=== PATIENT | female | born 1965 | race Caucasian/White ===

== ENCOUNTER 2017-04-22 09:44 | Outpatient (CLI) | payer MEDICARE, MEDICAID ==
[~2017-04-22 09:44] MED LIST: CYCL-394; DEXL60CA3 PO; HUM7525 SQ; LANTUS SUBCUT; LEVO112T5 PO; LINA5TAB4 PO; METO10TA3 PO; MIDO2.5T14 PO; ONDA8TAB9 PO; OXYC10TA47 PO; POTA20TA19 PO; ROSU40TA PO; TOPI100T18 PO
== END 2017-04-22 23:59 | disposition home or self-care (01) ==
LOC: RAD 09:44
PROVIDERS: ATTEND Surgery
DX: R93.3 Abnormal findings on diagnostic imaging of other parts of digestive tract (principal)
CPT/HCPCS: 74270

== ENCOUNTER 2017-08-06 13:10 | Day surgery (SDC) | payer MEDICARE, MEDICAID ==
[~2017-08-06] VITALS: Ht 152.4 cm; Wt 55.0 kg
== END 2017-08-06 15:00 | disposition home or self-care (01) ==
LOC: SSTAY O 13:10
PROVIDERS: ATTEND Family Medicine
DX: L08.9 Local infection of the skin and subcutaneous tissue, unspecified (principal); Z86.14 Personal history of Methicillin resistant Staphylococcus aureus infection; F17.210 Nicotine dependence, cigarettes, uncomplicated
CPT/HCPCS: 36569; 76937

== ENCOUNTER 2018-08-27 15:04 | Emergency (ER) | payer MEDICARE, MEDICAID ==
[~2018-08-27] VITALS: Ht 152.4 cm; Wt 48.6 kg
[~2018-08-27 15:04] MED LIST changes: +TOP100T PO; -TOPI100T18 PO
[2018-08-27] MEDS ORDERED: normal saline 1000ML IV soln IVB ONE (16:40)
[2018-08-27] MEDS ORDERED: metoclopramide 5 mg/ml inj IV ONE (16:40)
[2018-08-27 17:10] LABS: BASOPHILS # (AUTO) 0.1 X10'3 (0-0.2); BASOPHILS % (AUTO) 0.7 % (0-1); EOSINOPHILS # (AUTO) 0.1 X10'3 (0-0.9); EOSINOPHILS % (AUTO) 0.9 % (0-6); HEMOGLOBIN 11.9 g/dl (12.0-16.0); LYMPHOCYTES # (AUTO) 2.6 X10'3 (1.1-4.8); LYMPHOCYTES % (AUTO) 24.1 % (21-51); MEAN CORPUSCULAR HEMOGLOBIN 28.9 PG (27.0-31.0); MEAN CORPUSCULAR HGB CONC 33.2 g/dL (33.0-36.5); MEAN CORPUSCULAR VOLUME 87.1 FL (78-98); MEAN PLATELET VOLUME 8.4 FL (7.4-10.4); MONOCYTES # (AUTO) 0.8 X10'3 (0-0.9); MONOCYTES % (AUTO) 7.7 % (2-12); NEUTROPHILS % (AUTO) 66.6 % (42-75); PLATELET COUNT 282 X10'3 (140-440); RED BLOOD COUNT 4.13 X10'6 (4.20-5.60); RED CELL DISTRIBUTION WIDTH 16.4 % (11.5-14.5); WHITE BLOOD COUNT 10.6 X10'3 (4.5-11.0)
[2018-08-27 17:21] LABS: ABG OXYGEN SATURATION 97.2 % (95-98); ABG PCO2 (T) 23.4 mmHg (32.0-45.0); ABG PH (T) 7.549 (7.350-7.450); ABG PO2 (T) 88.9 mmHg (83-108); ALLEN'S TEST Positive; FCOHb 1.2 % (0.5-1.5); FMetHb 0.3 % (0.3-1.12); FO2Hb 95.7 % (94-100); TOTAL HEMOGLOBIN 11.7 G/dl (12.0-16.0)
[2018-08-27 17:35] LABS: ALANINE AMINOTRANSFERASE 11 U/L (12-78); ALBUMIN 2.6 G/DL (3.4-5.0); ALBUMIN/GLOBULIN RATIO 0.8 (1.1-1.5); ALKALINE PHOSPHATASE 101 IU/L (46-116); ANION GAP 15 (8-16); ASPARTATE AMINO TRANSFERASE 7 U/L (10-37); BILIRUBIN,TOTAL 0.3 MG/DL (0.1-1.0); BLOOD UREA NITROGEN 23 MG/DL (7-18); BUN/CREATININE RATIO 10.4 (6.6-38.0); CALCIUM 7.9 MG/DL (8.5-10.1); CHLORIDE 101 MMOL/L (99-107); CREATININE 2.21 MG/DL (0.40-0.90); ETHANOL < 0.010 GM/DL (0.0-0.010); GLUCOSE 213 MG/DL (70-104); SODIUM 138 MMOL/L (135-145); TOTAL CARBON DIOXIDE 22.4 MMOL/L (24-32); TROPONIN I < 0.04 NG/ML (0.0-0.05); eGFR 23 ML/MIN
[2018-08-27 17:39] LABS: POTASSIUM 2.7 MMOL/L (3.5-5.1)
[2018-08-27] MEDS ORDERED: potassium Cl 20 mEq SR tablet PO ONE (17:50)
[2018-08-27] MEDS ORDERED: magnesium 2GM in 50ml NS 50 ML IV ONE (17:50)
[2018-08-27] MEDS: potassium Cl 10 mEq/100mL bag IV SCH ×2 (18:34→19:18)
[2018-08-27] MEDS ORDERED: fentaNYL/PF 50MCG/1 ML 2ML syringe IV ONE (18:55)
[2018-08-27] MEDS ORDERED: ondansetron/PF 4mg/2ml inj IV ONE (18:55)
[2018-08-27 19:25] LABS: CLARITY,URINE CLOUDY (Clear); COLOR,URINE YELLOW (Yellow); GLUCOSE, URINE 250 mg/dl (Neg); KETONES,URINE 15 mg/dl (Neg); LEUKOCYTE ESTERASE ,URINE NEGATIVE (Neg); NITRITES, URINE NEGATIVE (Neg); OCCULT BLOOD,URINE TRACE-INTACT (Neg); PROTEIN,URINE 30 mg/dl (Neg); UROBILINOGEN,URINE 0.2 E.U/dL (0.2-1.0)
[2018-08-27 19:26] LABS: UA COLLECTION TYPE OTHER
[2018-08-27 19:35] LABS: BACTERIA,URINE 3+ /HPF (Neg); RBC,URINE 0-2 /HPF (0-2)
[2018-08-27 19:36] LABS: MUCUS STRANDS FEW /LPF (Neg); SQUAMOUS EPITHELIAL CELL,UR MANY /LPF (FEW)
[2018-08-27 19:42] LABS: URINE AMPHETAMINE SCREEN NEGATIVE (Neg); URINE BARBITUATE SCREEN NEGATIVE (Neg); URINE BENZODIAZEPINES SCREEN POSITIVE (Neg); URINE CANNABINOID SCREEN POSITIVE (Neg); URINE COCAINE SCREEN NEGATIVE (Neg); URINE METHADONE SCREEN NEGATIVE (Neg); URINE OPIATE SCREEN NEGATIVE (Neg); URINE PHENCYCLIDINE SCREEN NEGATIVE (Neg)
[2018-08-27 20:39] VITALS: BP 113/73
== END 2018-08-27 20:40 | disposition home or self-care (01) ==
LOC: ER 15:04
DX: R10.84 Generalized abdominal pain (principal); E11.42 Type 2 diabetes mellitus with diabetic polyneuropathy; N18.9 Chronic kidney disease, unspecified; G89.29 Other chronic pain; F17.200 Nicotine dependence, unspecified, uncomplicated; Z90.49 Acquired absence of other specified parts of digestive tract; Z98.890 Other specified postprocedural states; Z79.4 Long term (current) use of insulin; Z79.899 Other long term (current) drug therapy; Z88.5 Allergy status to narcotic agent; Z88.8 Allergy status to other drugs, medicaments and biological substances; Z88.6 Allergy status to analgesic agent; Z56.0 Unemployment, unspecified
CPT/HCPCS: 36415; 36600; 74176; 80053; 80305; 80320; 81001; 82803; 82948; 83605; 84484; 85018; 85025; 96365; 96375; 99284; J2405; J2765; J3010; J3475; J3480; J7030

== ENCOUNTER 2018-12-14 15:16 | Emergency (ER) | payer MEDICARE, MEDICAID ==
[~2018-12-14] VITALS: Ht 152.4 cm; Wt 47.7 kg
[2018-12-14 16:24] LABS: BASOPHILS % (AUTO) 0.3 % (0-1); EOSINOPHILS % (AUTO) 0.1 % (0-6); HEMATOCRIT 36.2 % (35.0-45.0); HEMOGLOBIN 11.9 g/dl (12.0-16.0); LYMPHOCYTES # (AUTO) 2.7 X10'3 (1.1-4.8); MEAN CORPUSCULAR HEMOGLOBIN 28.5 PG (27.0-31.0); MEAN CORPUSCULAR HGB CONC 32.8 g/dL (33.0-36.5); MEAN CORPUSCULAR VOLUME 86.9 FL (78-98); MEAN PLATELET VOLUME 8.3 FL (7.4-10.4); MONOCYTES # (AUTO) 0.8 X10'3 (0-0.9); MONOCYTES % (AUTO) 6.9 % (2-12); NEUTROPHILS # (AUTO) 8.2 X10'3 (1.8-7.7); NEUTROPHILS % (AUTO) 69.7 % (42-75); PLATELET COUNT 302 X10'3 (140-440); RED BLOOD COUNT 4.17 X10'6 (4.20-5.60); RED CELL DISTRIBUTION WIDTH 16.5 % (11.5-14.5); WHITE BLOOD COUNT 11.8 X10'3 (4.5-11.0)
[2018-12-14 16:39] LABS: ALANINE AMINOTRANSFERASE 18 U/L (12-78); ALBUMIN 3.1 G/DL (3.4-5.0); ALBUMIN/GLOBULIN RATIO 0.8 (1.1-1.5); ALKALINE PHOSPHATASE 86 IU/L (46-116); AMYLASE 59 U/L (25-115); ANION GAP 15 (8-16); ASPARTATE AMINO TRANSFERASE 16 U/L (10-37); BILIRUBIN,TOTAL 0.4 MG/DL (0.1-1.0); BLOOD UREA NITROGEN 28 MG/DL (7-18); CALCIUM 8.4 MG/DL (8.5-10.1); CHLORIDE 102 MMOL/L (99-107); CREATININE 1.75 MG/DL (0.40-0.90); GLUCOSE 217 MG/DL (70-104); LIPASE 102 U/L (73-393); POTASSIUM 3.3 MMOL/L (3.5-5.1); SODIUM 139 MMOL/L (135-145); TOTAL CARBON DIOXIDE 22.5 MMOL/L (24-32); TOTAL PROTEIN 6.8 G/DL (6.4-8.2); eGFR 31 ML/MIN
[2018-12-14] MEDS ORDERED: ondansetron/PF 4mg/2ml inj IV ONE (16:50)
[2018-12-14] MEDS ORDERED: traMADol 50MG tablet PO ONE (16:50)
[2018-12-14] MEDS ORDERED: normal saline 1000ML IV soln IVB ONE (16:50)
[2018-12-14] MEDS ORDERED: morphine 2 MG/ML inj. syringe IV ONE (17:30)
[2018-12-14] MEDS ORDERED: metoclopramide 5 mg/ml inj IV ONE ×2 (18:05)
[2018-12-14 18:23] VITALS: BP 104/75
--- NOTE | 2018-12-14 18:41 | NUR ---
JOSE DAVID SUTTON AT BEDSIDE TALKING WITH PT NOW. PT WITH FRIEND AT BEDSIDE. PT JUST GIVEN MSIV AND ZOFRAN.
== END 2018-12-14 18:52 | disposition home or self-care (01) ==
LOC: ER 15:17
DX: R10.9 Unspecified abdominal pain (principal); I13.0 Hypertensive heart and chronic kidney disease with heart failure and stage 1 through stage 4 chronic kidney disease, or unspecified chronic kidney disease; E11.22 Type 2 diabetes mellitus with diabetic chronic kidney disease; N18.9 Chronic kidney disease, unspecified; I50.9 Heart failure, unspecified; E03.9 Hypothyroidism, unspecified; G89.29 Other chronic pain; F41.9 Anxiety disorder, unspecified; Z90.49 Acquired absence of other specified parts of digestive tract; Z90.710 Acquired absence of both cervix and uterus; Z56.0 Unemployment, unspecified; Z98.890 Other specified postprocedural states; Z88.5 Allergy status to narcotic agent; Z88.8 Allergy status to other drugs, medicaments and biological substances; Z79.4 Long term (current) use of insulin; Z79.899 Other long term (current) drug therapy
CPT/HCPCS: 36415; 74018; 80053; 82150; 83690; 83880; 85025; 85610; 93005; 96374; 96375; 99284; J2270; J2405; J2765; J7040

== ENCOUNTER 2021-09-03 12:03 | Outpatient (CLI) | payer MEDICARE, MEDICAID ==
[~2021-09-03 12:03] MED LIST changes: +POTA-207 PO; -POTA20TA19 PO
[2021-09-03 13:10] LABS: BASOPHILS # (AUTO) 0.1 X10'3 (0-0.2); BASOPHILS % (AUTO) 1.3 % (0-1); EOSINOPHILS # (AUTO) 0.2 X10'3 (0-0.9); HEMATOCRIT 34.1 % (35.0-45.0); LYMPHOCYTES # (AUTO) 1.9 X10'3 (1.1-4.8); LYMPHOCYTES % (AUTO) 33.1 % (21-51); MEAN CORPUSCULAR HEMOGLOBIN 27.1 PG (27.0-31.0); MEAN CORPUSCULAR HGB CONC 32.1 g/dL (33.0-36.5); MEAN CORPUSCULAR VOLUME 84.5 FL (78-98); MEAN PLATELET VOLUME 7.7 FL (7.4-10.4); MONOCYTES # (AUTO) 0.4 X10'3 (0-0.9); MONOCYTES % (AUTO) 7.5 % (2-12); NEUTROPHILS % (AUTO) 54.1 % (42-75); PLATELET COUNT 314 X10'3 (140-440); RED BLOOD COUNT 4.03 X10'6 (4.20-5.60); RED CELL DISTRIBUTION WIDTH 17.3 % (11.5-14.5); WHITE BLOOD COUNT 5.6 X10'3 (4.5-11.0)
[2021-09-03 13:11] LABS: CLARITY,URINE CLEAR (Clear); COLOR,URINE YELLOW (Yellow); GLUCOSE, URINE 100 mg/dl (Neg); KETONES,URINE NEGATIVE (Neg); LEUKOCYTE ESTERASE ,URINE NEGATIVE (Neg); NITRITES, URINE NEGATIVE (Neg); OCCULT BLOOD,URINE NEGATIVE (Neg); PROTEIN,URINE 30 mg/dl (Neg); UROBILINOGEN,URINE 0.2 E.U/dL (0.2-1.0)
[2021-09-03 13:31] LABS: ALBUMIN 2.8 G/DL (3.4-5.0); ANION GAP 8 (8-16); BLOOD UREA NITROGEN 19 MG/DL (7-18); BUN/CREATININE RATIO 11.4 (6.6-38.0); CHLORIDE 103 MMOL/L (99-107); CREATININE 1.67 MG/DL (0.40-0.90); GLUCOSE 314 MG/DL (70-104); MAGNESIUM 2.1 MG/DL (1.5-2.4); PHOSPHORUS 4.1 MG/DL (2.3-4.5); POTASSIUM 4.1 MMOL/L (3.5-5.1); SODIUM 140 MMOL/L (135-145); TOTAL CARBON DIOXIDE 28.8 MMOL/L (24-32); eGFR 32 ML/MIN
[2021-09-03 13:38] LABS: UA COLLECTION TYPE CLN CATCH MIDSTREAM
[2021-09-03 14:05] LABS: BACTERIA,URINE FEW /HPF (Neg); SQUAMOUS EPITHELIAL CELL,UR MODERATE /LPF (FEW); WBC,URINE 0-4 /HPF (0-4)
[2021-09-03 14:08] LABS: % IRON SATURATION 10 % (11-46); IRON 30 UG/DL (49-151); TOTAL IRON BINDING CAPACITY 307 UG/DL (259-388)
[2021-09-03 14:53] LABS: TOTAL PROTEIN,URINE RANDOM 62.5 MG/DL; UA PROTEIN/CREATININE RATIO 2.97 mg/mg Cr (0-0.16)
[2021-09-03 15:00] LABS: FERRITIN 16 NG/ML (8-252)
== END 2021-09-03 23:59 | disposition home or self-care (01) ==
LOC: VAS 12:03
PROVIDERS: ATTEND Internal Medicine Critical Care Medicine
DX: R60.0 Localized edema (principal); N18.30 Chronic kidney disease, stage 3 unspecified; Z86.718 Personal history of other venous thrombosis and embolism
CPT/HCPCS: 36415; 80069; 81001; 82306; 82570; 82728; 83540; 83550; 83735; 83970; 84156; 85025; 93970